=== PATIENT | male | born 1965 | race African-American/Black ===

== ENCOUNTER 2019-08-01 07:02 | Observation (INO) | payer BC, SELFPAY ==
--- NOTE | 2019-08-01 07:31 | RAD ---
EXAM: Single view of the chest HISTORY: Chest pain COMPARISON: 09/24/2005 FINDINGS: Single view of the chest shows a normal sized cardiomediastinal silhouette. There is no erika dence of consolidation, mass, or pleural effusion. Degenerative changes are seen in the spine. IMPRESSION: No evidence of acute cardiopulmonary disease
[2019-08-01 07:54] LABS: #Basophils 0.1 thou/uL (0.0-0.2); #Eosinphils 0.2 thou/uL (0.0-0.7); #Lymphocytes 2.9 thou/uL (1.20-3.40); #Monocytes 0.8 thou/uL (0.11-0.59); #Neutrophils 3.1 thou/uL (1.40-6.50); %Eosinophils 2.3 % (0.0-10.0); %Lymphocytes 41.6 % (21.0-51.0); %Monocytes 10.9 % (0.0-10.0); %Neutrophils 44.1 % (42.0-75.0); Hemoglobin 13.5 g/dL (14.0-18.0); Mean Corpuscular HGB CONC 33.2 g/dL (32.0-36.0); Mean Corpuscular Volume 96.5 fL (78.0-98.0); Mean Platelet Volume 8.9 fL (7.4-10.4); Platelet Count 167 thou/uL (130-400); RBC Distribution Width 11.6 % (11.5-14.5); Red Blood Cell (RBC) Count 4.21 mill/uL (4.70-6.10)
[2019-08-01 08:13] LABS: ALT (SGPT) 31 U/L (8-55); AST (SGOT) 22 U/L (5-34); Albumin 4.2 g/dL (3.5-5.0); Alkaline Phosphatase 66 U/L (40-110); Anion Gap 7 mmol/L (10-20); BUN (Urea Nitrogen) 13 mg/dL (8.4-25.7); Bilirubin, Total 0.3 mg/dL (0.2-1.2); Calc. Creatinine Clearance 0 mL/min (70-130); Carbon Dioxide 29 mmol/L (22-29); Chloride 109 mmol/L (98-107); Estimated GFR-MDRD Greater than 90; Globulin 2.7 g/dL (2.4-3.5); Glucose 118 mg/dL (70-105); Potassium 4.1 mmol/L (3.5-5.1); Protein, Total 6.9 g/dL (6.0-8.3); Sodium 141 mmol/L (136-145)
[2019-08-01] MEDS ORDERED: Lidocaine 1% w/Epinephrine 1:100K 20 ML VIAL ONE (09:20)
[2019-08-01] MEDS ORDERED: Adacel (T-DAP) 0.5 ML SYRINGE ONE (09:20)
--- NOTE | 2019-08-01 09:32 | CT ---
EXAM: CT brain without contrast HISTORY: Syncope with right eyebrow laceration after trauma COMPARISON: None TECHNIQUE: Multiple contiguous axial images were obtained and a CT of the brain without contrast. FINDINGS: The brain is normal in morphology and attenuation without focal lesions or confluent areas of infarction. There is no evidence of hydrocephalus, intracranial hemorrhage, or extra-axial fluid collection. Mild right supraorbital soft tissue swelling is seen. The calvarium is unremarkable. The visualized p aranasal sinuses and mastoid air cells are well aerated. IMPRESSION: No evidence of acute intracranial abnormality
[2019-08-01] MEDS ORDERED: Aspirin Chewable 81 MG TAB ONE (11:57)
[2019-08-01 11:59] LABS: Troponin I 0.064 ng/mL (< 0.028)
[2019-08-01 14:07] VITALS: BMI 26.9
[2019-08-01] MEDS ORDERED: Ondansetron ODT 4 MG TAB SL PRN (14:39)
[2019-08-01] MEDS ORDERED: Ondansetron PF 4 MG/2 ML Vial IVP PRN (14:39)
[2019-08-01] MEDS ORDERED: Acetaminophen 325 MG TAB PO PRN (14:39)
[2019-08-01 14:59] LABS: Troponin I 0.059 ng/mL (< 0.028)
--- NOTE | 2019-08-01 15:44 | HP ---
CHIEF COMPLAINT: Syncope. HISTORY OF PRESENT ILLNESS: The patient is a 53-year-old male, who was getting ready for work this morning, went to the bathroom and all of a sudden he lost consciousness without any warning. He woke up on the floor, got up and went to his 's room where she was sleeping and the EMS was called and he was brought to the emergency room for further evaluation. He never had this problem before. He did not have any chest pain. No shortness of breath. No any symptoms of any kind. He was feeling normal before this happened and there was no any warning sign. He complained while in the emergency room of right eyebrow pain where he had a laceration from the fall and injury. PAST MEDICAL HISTORY: Negative for any problems. PAST SURGICAL HISTORY: None. SOCIAL HISTORY: He drinks beer on and off. He does not use any illicit drugs or does not smoke. FAMILY HISTORY: Both parents of cancer in their 60s. ALLERGIES: NONE. HE DOES NOT HAVE A PCP. HIS IS NADEGE WHO IS HIS SURROGATE DECISION MAKER. REVIEW OF SYSTEMS: All 14 systems were reviewed and negative except for those symptoms which are mentioned in the HPI. PHYSICAL EXAMINATION: VITAL SIGNS: Blood pressure is 125/70, pulse is 58, temperature is 97.6, respirations 16, O2 saturation is 99. HEENT: His head is post injury, he has laceration of the right eyebrow which was sutured by the emergency room doctor. His pupils are responding to light properly. Sclerae are nonicteric. Conjunctivae are reddish. Oral mucosa is moist. NECK: Supple. LUNGS: Clear. HEART: S1, S2 normal. No S3. No S4. No any murmur. ABDOMEN: Soft, nontender, nondistended. EXTREMITIES: No clubbing, cyanosis, or edema. NEUROLOGIC: He is alert and oriented x4. There is no any motor or sensory deficits present. Cranial nerves are intact. LABORATORY DATA: Labs showed a white count of 7.0, hemoglobin of 13.5, hematocrit 40.7, platelet count is 167,000. Sodium of 141, potassium 4.1, chloride 109, CO2 of 29, BUN 13, creatinine 0.94, glucose 118. Three sets of troponin 0.030, 0.064 and 0.059. The rest of chemistry is within normal limits. CK-MB is 6. Electrocardiogram showed sinus bradycardia with early repolarization images. Chest x-ray personally reviewed by me showed no evidence of acute cardiopulmonary disease. CT of the brain personally reviewed by me did not show any evidence of acute intracranial abnormality. IMPRESSION: 1. Syncope of unclear etiology, rule out cardiac etiology since he has indeterminate troponins and bradycardia and early repolarization on the electrocardiogram. We will talk to Dr. Castillo, who is on-call for Cardiology Services tonight. 2. Normocytic anemia. We will check his indices. PLAN: Plan is to admission to observation. CONDITION: Fair. ACTIVITY: Bedrest and bathroom privileges with assistance. IV Hep-Lock. Full code. Cardiology Service consultation with Dr. Castillo. Aspirin 325 mg once a day. Echocardiogram, two dimensional Doppler of the heart. DVT prophylaxis with SCDs and Lovenox 40 mg subcutaneously every 24 hours. Job ID: [id number]
--- NOTE | 2019-08-02 00:28 | CON ---
DATE OF CONSULTATION: HISTORY OF PRESENT ILLNESS: Stefano Brennan is a pleasant 53-year-old black male without any previous medical problems. This morning, he urinated and noticed as he finished and turned to leave the bathroom, he then found himself on the floor. EMS was called and he was brought to the hospital for further evaluation. He denied any chest discomfort or shortness of breath. He denied any diaphoresis, nausea, or vomiting. He states that the night before he did have some nausea, but never vomited. PAST MEDICAL HISTORY: No history of hypertension, diabetes, or hypercholesterolemia. MEDICATIONS: None. ALLERGIES: NONE. OPERATIONS: None. SOCIAL HISTORY: He does not smoke. He occasionally drinks beer. FAMILY HISTORY: Negative for coronary artery disease. REVIEW OF SYSTEMS: A 10-point review of systems is otherwise unremarkable. VITAL SIGNS: Blood pressure supine was 115/73, standing 125/80, pulse of 57. HEENT: PERRL. NECK: Supple. CHEST: Clear. CARDIAC: S1 and S2 normal without any S3, S4, or murmurs. Carotid upstrokes normal without bruits. ABDOMEN: Normal bowel sounds without tenderness or organomegaly. EXTREMITIES: Reveals no clubbing, cyanosis, or edema. NEUROLOGIC: Grossly intact. LABORATORY DATA: EKG revealed sinus bradycardia with early repolarization. Hemoglobin 13.5, hematocrit 40.7, white count 7000, platelets 167,000. D-dimer 0.57. Sodium 141, potassium 4.1, chloride 109, carbon dioxide 29, BUN 13, creatinine 0.64. Troponin I up to 0.064. IMPRESSION: 1. Micturition syncope. 2. Early repolarization. 3. [id number] myocardial infarction, type 2. RECOMMENDATIONS: Echocardiogram will be performed to assess left ventricular function. With his sightly elevated troponin I and early repolarization on EKG, I will have him undergo Cardiolite treadmill testing. Job ID: [id number]
[2019-08-02] MEDS ORDERED: Enoxaparin Sodium 40 MG/0.4 ML SYRINGE SC SCH (09:00)
[2019-08-02] MEDS ORDERED: Aspirin 325 mg Enteric Coated Tablet PO SCH (09:00)
--- NOTE | 2019-08-02 11:21 | NM ---
Nuclear medicine Cardiac myocardial perfusion SPECT Ejection fraction study Wall motion cine: DATE:08/02/2019 7:00 AM INDICATION: Chest pain TECHNIQUE: Number of days:2 Rest Study: Technetium 99m-sestamibi (Cardiolite) dose:10.6 mCi Stress study: Technetium 99m-sestamibi (Cardiolite) dose:31.5 mCi FINDINGS: Cardiac (myocardial perfusion) SPECT There are no reversible myocardial perfusion defects. Ejection fraction study Left ventricular EF = 66% Wall motion cine Normal wall motion and thickening IMPRESSION: No evidence of reversible myocardial ischemia.
--- NOTE | 2019-08-02 15:27 | PRG ---
DATE OF SERVICE: 08/02/2019 SUBJECTIVE: The patient was seen and examined at the bedside. He does not have much complaints to offer. He does not have any chest pain. He just came back from the Radiology Department where he had stress test done. OBJECTIVE: VITAL SIGNS: Blood pressure is 103/58, pulse is 59, temperature is 95.6. Orthostatic changes; his blood pressure goes up when he stands up from supine 103 to standing 121 and sitting 128. Respirations 15, O2 saturation 99% on room air. HEENT: His head is atraumatic and normocephalic. Eyes are PERRLA. Sclerae are nonicteric. Oral mucosa is moist. NECK: Supple. LUNGS: Clear. HEART: S1 and S2 normal. No S3. No S4. No any murmur. ABDOMEN: Soft, nontender, nondistended. EXTREMITIES: No clubbing, cyanosis, or edema. NEUROLOGIC: He is alert and oriented x4. There are no any motor or sensory deficits present. Cranial nerves are intact. LABORATORY DATA: Showed troponin I 0.064. The second set and third set 0.059. Nuclear stress test showed LVEF of 66%, normal wall motion and normal thickening. No evidence of reversible myocardial ischemia. IMPRESSION: 1. Syncope of still unclear etiology with some indeterminate troponins and bradycardia with early repolarization on electrocardiogram. The patient had normal stress test. He will have an echocardiogram today, and Dr. Castillo saw him for Cardiology evaluation. 2. Normocytic anemia. PLAN: We will follow Cardiology for further evaluation and make decision based on their findings. We will continue aspirin 325 mg once a day and DVT prophylaxis. He should be able to go home if the testing is negative, most likely in the next 24 hours since monitoring did not reveal any cardiac abnormalities on the monitor. Job ID: [id number]
[2019-08-02 15:31] VITALS: BP 116/67; TEMP 98.7
--- NOTE | 2019-08-03 07:36 | DIS ---
DATE OF ADMISSION: 08/01/2019 DATE OF DISCHARGE: 08/02/2019 DIAGNOSES AT THE TIME OF DISCHARGE: 1. Syncope. 2. Normocytic anemia. 3. Indeterminate troponin levels. CONSULTANTS: Dr. Chung Castillo, Cardiology Service. HOSPITAL COURSE: The patient was a 53-year-old male, who was getting ready to go to work when he had syncopal episode in the bathroom. He woke up on the floor and went to tell his what happened and EMS was called and he was brought to the emergency room for further evaluation. While in the emergency room, his blood pressure was 125/70, pulse was 68, temperature was 97.6, respirations were 16, O2 saturations were 99. His labs showed white count of 7.0, hemoglobin 13.5, hematocrit 40.7, platelet count was 167,000. Normal electrolytes. Normal kidney function. Normal glucose. Troponin was 0.030, 0.064, and 0.059 later during this hospitalization. The rest of chemistry was within normal limits. Electrocardiogram showed bradycardia, mild with early repolarization features. The chest x-ray did not show any acute abnormalities and the CT of the brain did not show any acute abnormalities. The patient got admitted to the hospital. He was placed on aspirin, and he underwent evaluation by wash rack operator, Dr. Castillo and asked for nuclear stress test, which was done and came back normal. No ischemia. Normal LVEF. Also, echocardiogram was performed, which showed ejection fraction of 50% to 55%. Mildly dilated left atrium and mild mitral regurgitation and mild tricuspid regurgitation. The patient did not have more syncopal episodes during this hospitalization. He was cleared by Cardiology to be discharged home, and he was discharged home with blood pressure 116/67, pulse was 64, temperature was 98.7, respirations were 20, and O2 saturation was 98% on room air. He was seen and examined before he discharged. DISCHARGE MEDICATIONS: None. DIET: Regular. ACTIVITY: As tolerated. He was told to establish himself with primary care physician in [facility] since he does not have any insurance and follow up with him or her in the next week or so. Job ID: [id number]
--- NOTE | 2019-08-04 19:50 | EKG ---
Test Reason : Blood Pressure : / mmHG Vent. Rate : 054 BPM Atrial Rate : 054 BPM P-R Int : 156 ms QRS Dur : 086 ms QT Int : 396 ms P-R-T Axes : 054 035 028 degrees QTc Int : 375 ms Sinus bradycardia Early repolarization Otherwise normal ECG Confirmed by YELENA SPRINGER D.O. ([id number]), legal editor FELIPE PAGE ([id number] on 08/04/2019 7:49:00 PM Referred By: Confirmed By:YELENA SPRINGER D.O.
== END 2019-08-02 18:37 | disposition home or self-care (01) ==
LOC: ERS 07:02 → 2SW 10:05
PROVIDERS: ADMIT Internal Medicine; ATTEND Internal Medicine
DX: R55 Syncope and collapse (principal); D64.9 Anemia, unspecified; I21.A1 Myocardial infarction type 2
CPT/HCPCS: 12013; 36415; 70450; 71045; 78452; 80053; 82553; 84484; 85025; 90471; 90715; 93005; 93017; 93306; A9500; G0378